=== PATIENT | female | born 1965 | race Caucasian/White ===

== ENCOUNTER 2024-05-13 16:05 | Outpatient (CLI) | payer BC | END 2024-05-13 16:06 | disposition home or self-care (01) | LOC: SCSRAD 16:05 | PROVIDERS: ATTEND Physician Assistant | DX: M25.552 Pain in left hip (principal) | CPT/HCPCS: 72170 ==

== ENCOUNTER 2024-05-16 15:25 | Outpatient (CLI) | payer BC | END 2024-05-16 15:26 | disposition home or self-care (01) | LOC: BICCT 15:25 | PROVIDERS: ATTEND Physician Assistant | DX: M89.9 Disorder of bone, unspecified (principal) | CPT/HCPCS: 72192 ==

== ENCOUNTER 2025-01-09 11:32 | Outpatient (CLI) | payer BC | END 2025-01-09 11:33 | disposition home or self-care (01) | LOC: SCSRAD 11:32 | PROVIDERS: ATTEND Family Medicine | DX: Z01.818 Encounter for other preprocedural examination (principal) | CPT/HCPCS: 71046 ==

== ENCOUNTER → 2025-04-20 | Day surgery (SDC) | payer BC ==
[2025-04-15 11:48] VITALS: BMI 27.9
[2025-04-15 12:37] LABS: #Basophils 0.03 10x3/uL (0.0-0.2); #Eosinophils 0.08 10x3/uL (0.0-0.7); #Monocytes 0.36 10x3/uL (0.11-0.59); #Neutrophils 3.02 10x3/uL (1.40-6.50); %Basophils 0.6 % (0.0-1.0); %Eosinophils 1.5 % (0.0-10.0); %Lymphocytes 33.8 % (21.0-51.0); %Monocytes 6.8 % (0.0-10.0); %Neutrophils 56.9 % (42.0-75.0); Hematocrit 41.6 % (36.0-47.0); Hemoglobin 12.6 g/dL (12.0-16.0); Mean Corpuscular Hemoglobin 27.4 pg (27.0-31.0); Mean Corpuscular Volume 90.4 fL (78.0-98.0); Platelet Count 243 10x3/uL (130-400); Red Blood Cell (RBC) Count 4.60 mill/uL (4.20-5.40); White Blood Cell (WBC) Count 5.30 10x3/uL (4.8-10.8)
[2025-04-15 12:54] LABS: ALT (SGPT) 27 U/L (Less than 34); AST (SGOT) 47 U/L (11-34); Albumin 3.5 g/dL (3.1-4.5); Alkaline Phosphatase 123 U/L (40-110); Anion Gap 11 mmol/L (10-20); BUN (Urea Nitrogen) 28 mg/dL (9.8-20.1); Bilirubin, Total 0.1 mg/dL (0.3-1.2); Calc. Creatinine Clearance 0 mL/min (70-130); Calcium 9.0 mg/dL (7.8-10.44); Carbon Dioxide 20 mmol/L (22-29); Chloride 113 mmol/L (98-107); Globulin 2.4 g/dL (2.4-3.5); Glucose 92 mg/dL (70-105); Potassium 4.3 mmol/L (3.5-5.1); Sodium 140 mmol/L (136-145)
[2025-04-15 12:56] LABS: INR-International Normal Ratio 0.8; Prothrombin Time 11.6 sec (12.0-14.7)
[~2025-04-20] MED LIST: Acetaminophen 500 MG TAB ONE; Gabapentin 300 MG CAP ONE; Tranexamic Acid 1,000 MG/10 ML VIAL ONE; Vancomycin 1 GM/200 ML (FROZEN) BAG ONE
== END | disposition home or self-care (01) ==
LOC: SDC 05:52
PROVIDERS: ATTEND Student in an Organized Health Care Education/Training Program
DX: M87.851 Other osteonecrosis, right femur (principal); M25.561 Pain in right knee
CPT/HCPCS: 80053; 85025; 85610; 86850; 86900; 86901; 87081; J3373